=== PATIENT | male | born 1985 | race African-American/Black ===

== ENCOUNTER 2021-01-02 23:35 | Emergency (ER) | payer OTHER ==
[~2021-01-02] VITALS: Ht 177.8 cm; Wt 86.2 kg
[2021-01-03 00:04] LABS: BILIRUBIN Negative (Negative); BLOOD Negative (Negative); CLARITY Clear (Clear); COLOR Yellow (Yellow); GLUCOSE Negative (Negative); KETONE Trace (Negative); LEUKO ESTERASE Negative (Negative); NITRITE Negative (Negative); SPECIFIC GRAVITY 1.025 (1.001-1.030)
[2021-01-03 00:26] LABS: BACTERIA TRACE; EPITHELIAL CELLS 0-2
== END 2021-01-03 00:50 | disposition home or self-care (01) ==
LOC: ED 23:35 → EDBD 23:53 → ED 23:53
PROVIDERS: Internal Medicine
DX: A64 Unspecified sexually transmitted disease (principal); Z88.1 Allergy status to other antibiotic agents